=== PATIENT | male | born 1955 | race Caucasian/White ===

== ENCOUNTER 2016-11-30 07:32 | Emergency (ER) | payer OTHER ==
[~2016-11-30] VITALS: Ht 172.7 cm; Wt 99.6 kg
[~2016-11-30 07:32] MED LIST: ATEN-100 PO; ATOR10TA PO; DIAZ5 PO; LITH450 PO; LURA40; OMEP20TA PO; PHEN12.5 PO; QUET300 PO; SYNT25TA PO
[2016-11-30 07:36] VITALS: BP 120/76; PULSE 73; RESP 16; TEMP 98.5; O2SAT 97
[2016-11-30] MEDS ORDERED: ATOR10TA15 PO (08:02)
[2016-11-30] MEDS ORDERED: CLON.5 PO (08:02)
[2016-11-30] MEDS ORDERED: LURA40 PO (08:02)
[2016-11-30] MEDS ORDERED: LITH450T PO (08:02)
[2016-11-30] MEDS ORDERED: LEVO25TA4 PO (08:02)
[2016-11-30] MEDS ORDERED: ATEN25TA PO (08:02)
[2016-11-30] MEDS ORDERED: VIAG100T PO (08:02)
[2016-11-30] MEDS ORDERED: DIAZ5TAB PO (08:02)
[2016-11-30] MEDS ORDERED: QUET1TAB11 PO (08:04)
[2016-11-30] MEDS ORDERED: SODIUM CHLOR 0.9% 1000 ML INJ 1,000 ML IV SCH (08:14)
[2016-11-30] MEDS ORDERED: SODIUM CHLORIDE 0.9% FLUSH 5 ML FLUSH IVF PRN (08:15)
[2016-11-30] MEDS ORDERED: MORPHINE SULFATE 4 MG/ML INJ IV PUSH ONE (08:15)
[2016-11-30] MEDS ORDERED: ONDANSETRON HCL 4 MG/2 ML VIAL IVP ONE (08:15)
--- NOTE | 2016-11-30 08:16 | PD ---
HPI Chief Complaint: GI Complaint Time Seen by Provider: 08:07 Travel History International Travel<30 days: No Contact w/Intl Traveler<30days: No Traveled to known affect area: No History of Present Illness HPI This is a 61-year-old male who presents to the emergency department with several weeks of intermittent abdominal cramping, moderate severity, feeling like someone is punching him in the stomach, keeping him up overnight for the last several nights. He reports he feels very nauseous but hasn't been able to vomit. He's been having bowel movements. His last bowel movement was 10:30 last evening. He says his bowel movements are loose and have a foul odor to them. He denies any fevers or chills. He does say the pain radiates to his back and is worse in the left upper quadrant. He has a history of a bowel obstruction in the past, pancreatitis and diverticulosis. He is not sure why he had the bowel obstruction as he's never had surgery on his abdomen. PFSH Past Medical History Hx Anticoagulant Therapy: No Arthritis: Yes (L HAND, NECK) Bipolar Disorder: Yes Anxiety: Yes Depression: Yes Heart Rhythm Problems: No Cancer: No Cardiovascular Problems: Yes (HTN) High Cholesterol: No Chest Pain: No Congestive Heart Failure: No Cerebrovascular Accident: No Diabetes: No Diminished Hearing: No Endocrine: Yes Gastrointestinal Disorders: Yes (DIVERTICULOSIS) Genitourinary: No Hypertension: Yes Immune Disorder: No Implanted Vascular Access Dvce: No Musculoskeletal: Yes Neurologic: Yes Psychiatric: Yes (SCHIZOPHRENIA , BIPOLAR) Reproductive: No Respiratory: No Pancreatitis: Yes Schizophrenia: Yes Thyroid Disease: Yes Ulcer: No Tetanus Vaccination: Unknown Influenza Vaccination: No Past Surgical History Abdominal Surgery: Yes (LEFT INGUINAL HERNIA REPAIR) Cardiac Surgery: No Endocrine Surgery: No Eye Surgery: Yes (CATARACTSX2) Genitourinary Surgery: No Gynecologic Surgery: No Neurologic Surgery: No Oral Surgery: No Thoracic Surgery: No Tonsillectomy: Yes Other Surgery: Yes (SKIN GRAFTS LEFT ARM AND BOTH UPPER LEGS DUE TO 3RD DEGREE COLUNGA) Social History Alcohol Use: Yes (1-2 BEERS per week) Tobacco Use: No (quit cigs 7 years ago now e-vapor ) Substance Use: No Allergies-Medications (Allergen,Severity, Reaction): Coded Allergies: Cogentin (Verified Allergy, Severe, 11/30/16) Haldol (Verified Allergy, Severe, HALLUCINATION, 11/30/16) Thorazine (Verified Allergy, Severe, RASH, 11/30/16) Mellaril (Verified Allergy, Intermediate, 11/30/16) Reported Meds & Prescriptions Reported Meds & Active Scripts Active Reported Quetiapine (Quetiapine Fumarate) 400 Mg Tab 450 Mg PO HS Viagra (Sildenafil Citrate) 100 Mg Tab 100 Mg PO DAILY PRN Latuda (Lurasidone) 40 Mg Tab 40 Mg PO DAILY [place] Carbonate ER ([place] Carbonate) 450 Mg Tab 450 Mg PO BID Levothyroxine (Levothyroxine Sodium) 25 Mcg Tab 25 Mcg PO DAILY Klonopin (Clonazepam) 0.5 Mg Tab 0.5 Mg PO BID PRN Diazepam 5 Mg Tab 5 Mg PO DAILY PRN Atorvastatin (Atorvastatin Calcium) 10 Mg Tab 5 Mg PO HS Atenolol 25 Mg Tab 25 Mg PO HS Review of Systems Except as stated in HPI: all other systems reviewed are Neg Physical Exam Narrative GENERAL:Well appearing, no acute distress SKIN: Warm and dry. HEAD: Atraumatic. Normocephalic. EYES: Pupils equal and round. No injection or drainage. ENT: Moist mucous membranes NECK: Trachea midline. CARDIOVASCULAR: Regular rate and rhythm. No murmur appreciated. RESPIRATORY: Clear to auscultation. Breath sounds equal bilaterally. GASTROINTESTINAL: Abdomen soft, bowel sounds in all 4 quadrants, mildly tender to palpation diffusely. MUSCULOSKELETAL: No obvious deformities. NEUROLOGICAL: Awake and alert. No obvious cranial nerve deficits. Moving all extremities. PSYCHIATRIC: Appropriate mood and affect; insight and judgment normal. Data Data Last Documented VS Vital Signs Date Time Temp Pulse Resp B/P Pulse Ox O2 Delivery O2 Flow Rate FiO2 11/30/16 09:27 75 16 140/65 97 Room Air 11/30/16 07:36 98.5 Orders Complete Blood Count With Diff (11/30/16 08:14) Comprehensive Metabolic Panel (11/30/16 08:14) Lipase (11/30/16 08:14) Urinalysis - C+S If Indicated (11/30/16 08:14) Ct Abd/Pel W Iv Contrast(Rout) (11/30/16 08:14) Iv Access Insert/Monitor (11/30/16 08:14) Ecg Monitoring (11/30/16 08:14) Oximetry (11/30/16 08:14) Morphine Inj (Morphine Inj) (11/30/16 08:15) Ondansetron Inj (Zofran Inj) (11/30/16 08:15) Sodium Chlor 0.9% 1000 Ml Inj (Ns 1000 M (11/30/16 08:14) Sodium Chloride 0.9% Flush (Ns Flush) (11/30/16 08:15) Iohexol 350 Inj (Omnipaque 350 Inj) (11/30/16 09:17) Labs Laboratory Tests Test 11/30/16 11/30/16 08:30 08:45 White Blood Count 7.4 TH/MM3 Red Blood Count 4.95 MIL/MM3 Hemoglobin 14.9 GM/DL Hematocrit 44.2 % Mean Corpuscular Volume 89.4 FL Mean Corpuscular Hemoglobin 30.2 PG Mean Corpuscular Hemoglobin 33.7 % Concent Red Cell Distribution Width 11.7 % Platelet Count 198 TH/MM3 Mean Platelet Volume 9.4 FL Neutrophils (%) (Auto) 54.3 % Lymphocytes (%) (Auto) 31.8 % Monocytes (%) (Auto) 10.0 % Eosinophils (%) (Auto) 3.0 % Basophils (%) (Auto) 0.9 % Neutrophils # (Auto) 4.0 TH/MM3 Lymphocytes # (Auto) 2.4 TH/MM3 Monocytes # (Auto) 0.7 TH/MM3 Eosinophils # (Auto) 0.2 TH/MM3 Basophils # (Auto) 0.1 TH/MM3 CBC Comment DIFF FINAL Differential Comment Sodium Level 144 MEQ/L Potassium Level 3.8 MEQ/L Chloride Level 109 MEQ/L Carbon Dioxide Level 25.2 MEQ/L Anion Gap 10 MEQ/L Blood Urea Nitrogen 11 MG/DL Creatinine 1.10 MG/DL Estimat Glomerular Filtration 68 ML/MIN Rate Random Glucose 102 MG/DL Calcium Level 8.2 MG/DL Total Bilirubin 0.4 MG/DL Aspartate Amino Transf 18 U/L (AST/SGOT) Alanine Aminotransferase 32 U/L (ALT/SGPT) Alkaline Phosphatase 76 U/L Total Protein 6.9 GM/DL Albumin 3.5 GM/DL Lipase 131 U/L Urine Collection Type CLEAN CATCH Urine Color YELLOW Urine Turbidity CLEAR Urine pH 6.0 Urine Specific [place] 1.009 Urine Protein NEG mg/dL Urine Glucose (UA) NEG mg/dL Urine Ketones NEG mg/dL Urine Occult Blood NEG Urine Nitrite NEG Urine Bilirubin NEG Urine Leukocyte Esterase NEG Urine Squamous Epithelial 0-5 /hpf Cells Urine Amorphous Sediment FEW Microscopic Urinalysis Comment CULT NOT INDICATED Urine Collection Time 0845 [facility] Medical Decision Making Medical Screen Exam Complete: Yes Emergency Medical Condition: Yes Interpretation(s) Afebrile, no tachycardia, normotensive No leukocytosis Monocytic shift Electrolytes are reassuring Lipase is normal Urinalysis: No infection Last 24 hours Impressions Abdomen/Pelvis CT 11/30/16 0814 Signed Impressions: Service Date/Time: Wednesday, November 30, 2016 09:10 - CONCLUSION: 1. Questionable circumferential bladder wall thickening. 2. No acute inflammatory process. Marques Fierro MD Differential Diagnosis Pancreatitis, bowel obstruction, diverticulitis, colitis, gastritis, peptic ulcer disease Narrative Course This is a 61-year-old male who presents with intermittent abdominal pain and nausea that been going on for several weeks. He has a history of bowel obstruction and pancreatitis. He was placed on a monitor and an IV was established. Labs are obtained which were all reassuring. CT abdomen and pelvis was negative for bowel obstruction and only notes some circumferential bladder thickening. I discussed this with the patient and advised to follow-up with urology as an outpatient. I don't think this is the source of his symptoms. I suspect he has gastritis or peptic ulcer disease. He will be discharged with an antacid and asked to follow-up with gastroenterology. Diagnosis Primary Impression: Abdominal pain in male Referrals: Rajinder Mcgee MD Patient Instructions: General Instructions Additional Instructions: If you develop severe or worsening abdominal pain, fever>100.4, persistent vomiting or inability to eat or drink return to the emergency department immediately. Follow up with your primary care physician in 1-2 days for a check-up. You have a thick bladder on CT scan which should be followed by urology without fail. Med/Other Pt SpecificInfo: Prescription(s) given Disposition: 01 DISCHARGE HOME Condition: Stable Dolly Rojas MD Nov 30, 2016 08:16
[2016-11-30 08:40] LABS: BASOPHIL # 0.1 TH/MM3 (0-0.2); BASOPHIL % 0.9 % (0.0-2.0); EOSINOPHIL # 0.2 TH/MM3 (0-0.4); HEMATOCRIT 44.2 % (39.0-51.0); HEMO FLAGS DIFF FINAL; LYMPH % 31.8 % (9.0-44.0); LYMPHOCYTE # 2.4 TH/MM3 (1.0-4.8); MEAN CELL VOLUME 89.4 FL (80.0-100.0); MEAN CORPUSCULAR HEMOGLOBIN 30.2 PG (27.0-34.0); MEAN CORPUSCULAR HGB CONC 33.7 % (32.0-36.0); NEUT % 54.3 % (16.0-70.0); PLATELET COUNT 198 TH/MM3 (150-450); RED BLOOD COUNT 4.95 MIL/MM3 (4.50-5.90); RED CELL DISTRIBUTION WIDTH 11.7 % (11.6-17.2); WHITE BLOOD COUNT 7.4 TH/MM3 (4.0-11.0)
[2016-11-30 08:47] VITALS: RESP 16; O2SAT 98
[2016-11-30 08:48] LABS: CHLORIDE 109 MEQ/L (98-107); POTASSIUM 3.8 MEQ/L (3.5-5.1); SODIUM (NA) 144 MEQ/L (136-145)
[2016-11-30 08:51] LABS: BLOOD, URINE NEG (NEG); GLUCOSE,URINE NEG (NEG); KETONE, URINE NEG (NEG); METHOD OF COLLECTION CLEAN CATCH; NITRITE,URINE NEG (NEG); URINE COLOR YELLOW (YELLW/STRAW)
[2016-11-30 08:52] LABS: ANION GAP 10 MEQ/L (5-15); BICARBONATE 25.2 MEQ/L (21.0-32.0); BLOOD UREA NITROGEN 11 MG/DL (7-18)
[2016-11-30 08:55] LABS: ALT (GPT) 32 U/L (12-78); AST (GOT) 18 U/L (15-37); GLOMERULAR FILTRATION RATE 68 ML/MIN (>89)
[2016-11-30 08:57] LABS: TOTAL BILIRUBIN ADULT 0.4 MG/DL (0.2-1.0)
[2016-11-30 08:58] LABS: ALKALINE PHOSPHATASE 76 U/L (45-117)
[2016-11-30 09:01] LABS: COMMENT (UR) CULT NOT INDICATED; CULTURE IF INDICATED CULT NOT INDICATED; SQUAMOUS EPITHELIAL CELL URINE 0-5 /hpf (0-5)
[2016-11-30] MEDS ORDERED: IOHEXOL 350 MG/ML 10 ML VIAL (for RAD DIAG) IV ONE (09:17)
[2016-11-30 09:27] VITALS: BP 140/65; PULSE 75; RESP 16; O2SAT 97
--- NOTE | 2016-11-30 09:51 | RADHPO ---
EXAM DATE/TIME: 11/30/2016 09:10 [facility] COMPARISON: CT ABDOMEN & PELVIS W CONTRAST, November 10, 2014, 2:23. INDICATIONS : Lower abdomen pain for three weeks. IV CONTRAST: 70 cc Omnipaque 350 (iohexol) IV ORAL CONTRAST: No oral contrast ingested. RADIATION DOSE: 17.54 CTDIvol (mGy) MEDICAL HISTORY : Diverticulosis. Hypertension. Pancreatitis. SURGICAL HISTORY : Inguinal hernia repair. ENCOUNTER: Initial ACUITY: 3 weeks PAIN SCALE: 5/10 LOCATION: Bilateral lower quadrant TECHNIQUE: Volumetric scanning of the abdomen and pelvis was performed. Using automated exposure control and ad justment of the mA and/or kV according to patient size, radiation dose was kept as low as reasonably achievable to obtain optimal diagnostic quality images. FINDINGS: LOWER LUNGS: The visualized lower lungs are clear. LIVER: Homogeneous density without lesion. There is no dilation of the biliary tree. No calcified gallston es. SPLEEN: Normal size without lesion. PANCREAS: Within normal limits. KIDNEYS: Normal in size and shape. There is no mass, stone or hydronephrosis. ADRENAL GLANDS: Within normal limits. VASCULAR: There is no aortic aneurysm. BOWEL/MESENTERY: The stomach, small bowel, and colon demonstrate no acute abnormality. There is no free intraperitone al air or fluid. ABDOMINAL WALL: Within normal limits. RETROPERITONEUM: There is no lymphadenopathy. BLADDER: Questionable wall thickening without mass. REPRODUCTIVE: Within normal limits. INGUINAL: There is no lymphadenopathy or hernia on the right. Fat containing left inguinal hernia.. MUSCULOSKELETAL: Within normal limits for patient age. CONCLUSION: 1. Questionable circumferential bladder wall thickening. 2. No acute inflammatory process. Marques Fierro MD on November 30, 2016 at 9:47 Board Certified Radiologist. This report was verified electronically.
[2016-11-30] MEDS ORDERED: RANI150T PO (10:00)
[2016-11-30 10:33] VITALS: BP 134/67
[2016-12-01] MEDS ORDERED: TRAM50TA PO (04:37)
== END 2016-11-30 10:34 | disposition home or self-care (01) ==
LOC: PHED 07:32
DX: R10.84 Generalized abdominal pain (principal); I10 Essential (primary) hypertension
CPT/HCPCS: 74177; 80053; 81001; 83690; 85025; 96361; 96374; 96375; 99284; J2270; J2405; J7030; Q9967

== ENCOUNTER 2016-12-01 03:16 | Emergency (ER) | payer OTHER, MEDICARE ==
[~2016-12-01] VITALS: Ht 172.7 cm; Wt 102.0 kg
[~2016-12-01 03:16] MED LIST changes: -ATEN-100 PO; +ATEN25TA PO; -ATOR10TA PO; +ATOR10TA15 PO; +CLON.5 PO; -DIAZ5 PO; +DIAZ5TAB PO; +LEVO25TA4 PO; -LITH450 PO; +LITH450T PO; -LURA40; +LURA40 PO; -OMEP20TA PO; -PHEN12.5 PO; +QUET1TAB11 PO; -QUET300 PO; +RANI150T PO; -SYNT25TA PO; +VIAG100T PO
[2016-12-01 03:21] VITALS: BP 138/76; PULSE 94; RESP 16; TEMP 99.2; O2SAT 95
[2016-12-01] MEDS ORDERED: TRAM50TA PO (04:37)
--- NOTE | 2016-12-01 04:37 | PD ---
HPI Chief Complaint: Complaint Time Seen by Provider: 03:57 Travel History International Travel<30 days: No Contact w/Intl Traveler<30days: No Traveled to known affect area: No History of Present Illness HPI The patient is a 61-year-old male that complains of dysuria for 4 weeks. He was seen here yesterday and a complete workup which included CBC, urine, complete metabolic profile was normal except for a creatinine 1.1 and GFR 68. He states he just needs something for the pain so he can get some sleep. He states later on today he will be seen at the [facility]. He does have a history of schizophrenia, depression, anxiety and bipolar disorder. He states he is worried about bladder cancer. PFSH Past Medical History Hx Anticoagulant Therapy: No Arthritis: Yes (L HAND, NECK) Bipolar Disorder: Yes Anxiety: Yes Depression: Yes Heart Rhythm Problems: No Cancer: No Cardiovascular Problems: Yes (HTN) High Cholesterol: No Chest Pain: No Congestive Heart Failure: No Cerebrovascular Accident: No Diabetes: No Diminished Hearing: No Endocrine: Yes Gastrointestinal Disorders: Yes (DIVERTICULOSIS) Genitourinary: No Hypertension: Yes Immune Disorder: No Implanted Vascular Access Dvce: No Musculoskeletal: Yes Neurologic: Yes Psychiatric: Yes (SCHIZOPHRENIA , BIPOLAR) Reproductive: No Respiratory: No Pancreatitis: Yes Schizophrenia: Yes Thyroid Disease: Yes Ulcer: No Tetanus Vaccination: < 5 Years Influenza Vaccination: No Past Surgical History Abdominal Surgery: Yes (LEFT INGUINAL HERNIA REPAIR) Cardiac Surgery: No Endocrine Surgery: No Eye Surgery: Yes (CATARACTSX2) Genitourinary Surgery: No Gynecologic Surgery: No Neurologic Surgery: No Oral Surgery: No Thoracic Surgery: No Tonsillectomy: Yes Other Surgery: Yes (SKIN GRAFTS LEFT ARM AND BOTH UPPER LEGS DUE TO 3RD DEGREE COLUNGA) Social History Alcohol Use: Yes (1-2 BEERS per week) Tobacco Use: No (quit cigs 7 years ago now e-vapor ) Substance Use: No Allergies-Medications (Allergen,Severity, Reaction): Coded Allergies: Cogentin (Verified Allergy, Severe, 12/01/16) Haldol (Verified Allergy, Severe, HALLUCINATION, 12/01/16) Thorazine (Verified Allergy, Severe, RASH, 12/01/16) Mellaril (Verified Allergy, Intermediate, 12/01/16) Reported Meds & Prescriptions Reported Meds & Active Scripts Active Ranitidine (Ranitidine HCl) 150 Mg Tab 150 Mg PO BID Reported Quetiapine (Quetiapine Fumarate) 400 Mg Tab 450 Mg PO HS Viagra (Sildenafil Citrate) 100 Mg Tab 100 Mg PO DAILY PRN Latuda (Lurasidone) 40 Mg Tab 40 Mg PO DAILY [place] Carbonate ER ([place] Carbonate) 450 Mg Tab 450 Mg PO BID Levothyroxine (Levothyroxine Sodium) 25 Mcg Tab 25 Mcg PO DAILY Klonopin (Clonazepam) 0.5 Mg Tab 0.5 Mg PO BID PRN Atorvastatin (Atorvastatin Calcium) 10 Mg Tab 5 Mg PO HS Atenolol 25 Mg Tab 25 Mg PO HS Review of Systems Except as stated in HPI: all other systems reviewed are Neg Physical Exam Narrative GENERAL: Well-nourished, well-developed patient in minimal apparent distress. His vital signs are normal. SKIN: Warm and dry. HEAD: Normocephalic. EYES: No scleral icterus. No injection or drainage. NECK: Supple, trachea midline. No JVD or lymphadenopathy. CARDIOVASCULAR: Regular rate and rhythm without murmurs, gallops, or rubs. RESPIRATORY: Breath sounds equal bilaterally. No accessory muscle use. GASTROINTESTINAL: Abdomen soft, non-tender, nondistended. No guarding or rebound is present. MUSCULOSKELETAL: No cyanosis, or edema. BACK: Nontender without obvious deformity. No CVA tenderness. Data Data Last Documented VS Vital Signs Date Time Temp Pulse Resp B/P Pulse Ox O2 Delivery O2 Flow Rate FiO2 12/01/16 03:21 99.2 94 16 138/76 95 MDM Medical Decision Making Medical Screen Exam Complete: Yes Emergency Medical Condition: Yes Medical Record Reviewed: Yes Differential Diagnosis Conversion reaction, schizophrenia, anxiety, urinary tract infection, interstitial cystitis Narrative Course The patient may have a conversion reaction. I told the patient that his urine was absolutely normal and there was nothing in his urine done yesterday that suggested any bladder cancer. Nevertheless, the patient is still worried. He does not appear to be delusional at this time. Diagnosis Primary Impression: Schizophrenia Additional Impression: History of dysuria Additional Instructions[facility], take Aleve to see if this helps the problems. Med/Other Pt SpecificInfo: Prescription(s) given Scripts Tramadol 50 Mg Tab50 Mg PO Q4H PRN (PAIN) #10 TAB Ref 0 Prov:Jos Ham MD 12/01/16 Disposition: 01 DISCHARGE HOME Condition: Stable Jos Ham MD Dec 01, 2016 04:37
== END 2016-12-01 04:47 | disposition home or self-care (01) ==
LOC: PHED 03:16
DX: F20.9 Schizophrenia, unspecified (principal); R30.0 Dysuria; I10 Essential (primary) hypertension; R52 Pain, unspecified
CPT/HCPCS: 99283

== ENCOUNTER 2017-01-25 03:21 | Emergency (ER) | payer OTHER, MEDICARE ==
[~2017-01-25] VITALS: Ht 172.7 cm; Wt 95.0 kg
[~2017-01-25 03:21] MED LIST changes: -DIAZ5TAB PO; +TRAM50TA PO
[2017-01-25 03:23] VITALS: BP 123/62; PULSE 86; RESP 16; TEMP 98; O2SAT 98
[2017-01-25] MEDS ORDERED: SODIUM CHLORIDE 0.9% FLUSH 10 ML FLUSH IV FLUSH PRN (03:45)
[2017-01-25] MEDS ORDERED: ONDANSETRON HCL 4 MG/2 ML VIAL IVP ONE (04:00)
[2017-01-25] MEDS ORDERED: ALUMINUM/MAGNESIUM/SIMETH 30 ML CUP PO ONE (04:00)
[2017-01-25] MEDS ORDERED: LIDOCAINE VISCOUS 2% SOLN 15 ML UDC PO ONE (04:00)
[2017-01-25] MEDS ORDERED: PANTOPRAZOLE SODIUM 40 MG VIAL IVP ONE (04:00)
--- NOTE | 2017-01-25 04:05 | PD ---
HPI Chief Complaint: GI Complaint Time Seen by Provider: 03:51 Travel History International Travel<30 days: No Contact w/Intl Traveler<30days: No Traveled to known affect area: No History of Present Illness HPI Patient is a 61-year-old male presents emergency department with complaint of abdominal pain. Patient states that he ate some coleslaw at a restaurant yesterday evening that didn't taste good. This morning at approximately 1 AM he woke up with complaint of epigastric abdominal pain, slightly burning in nature. He denies any history of peptic ulcer disease, but does have history of pancreatitis. He's had some nausea but no vomiting. No diarrhea, fevers or chills. PFSH Past Medical History Hx Anticoagulant Therapy: No Arthritis: Yes (L HAND, NECK) Bipolar Disorder: Yes Anxiety: Yes Depression: Yes Heart Rhythm Problems: No Cancer: No Cardiovascular Problems: Yes (HTN) High Cholesterol: No Chest Pain: No Congestive Heart Failure: No Cerebrovascular Accident: No Diabetes: No Diminished Hearing: No Endocrine: Yes Gastrointestinal Disorders: Yes (DIVERTICULOSIS) Genitourinary: No Hypertension: Yes Immune Disorder: No Implanted Vascular Access Dvce: No Musculoskeletal: Yes Neurologic: Yes Psychiatric: Yes (SCHIZOPHRENIA , BIPOLAR) Reproductive: No Respiratory: No Pancreatitis: Yes Schizophrenia: Yes Thyroid Disease: Yes Ulcer: No Past Surgical History Abdominal Surgery: Yes (LEFT INGUINAL HERNIA REPAIR) Cardiac Surgery: No Endocrine Surgery: No Eye Surgery: Yes (CATARACTSX2) Genitourinary Surgery: No Gynecologic Surgery: No Neurologic Surgery: No Oral Surgery: No Thoracic Surgery: No Tonsillectomy: Yes Other Surgery: Yes (SKIN GRAFTS LEFT ARM AND BOTH UPPER LEGS DUE TO 3RD DEGREE COLUNGA) Social History Alcohol Use: Yes (1-2 BEERS per week) Tobacco Use: No (quit cigs 7 years ago now e-vapor ) Substance Use: No Allergies-Medications (Allergen,Severity, Reaction): Coded Allergies: Cogentin (Verified Allergy, Severe, 01/25/17) Haldol (Verified Allergy, Severe, HALLUCINATION, 01/25/17) Thorazine (Verified Allergy, Severe, RASH, 01/25/17) Mellaril (Verified Allergy, Intermediate, 01/25/17) Reported Meds & Prescriptions Reported Meds & Active Scripts Active Reported Quetiapine (Quetiapine Fumarate) 400 Mg Tab 450 Mg PO HS Viagra (Sildenafil Citrate) 100 Mg Tab 100 Mg PO DAILY PRN Latuda (Lurasidone) 40 Mg Tab 40 Mg PO DAILY [place] Carbonate ER ([place] Carbonate) 450 Mg Tab 450 Mg PO BID Levothyroxine (Levothyroxine Sodium) 25 Mcg Tab 25 Mcg PO DAILY Klonopin (Clonazepam) 0.5 Mg Tab 0.5 Mg PO BID PRN Atorvastatin (Atorvastatin Calcium) 10 Mg Tab 5 Mg PO HS Atenolol 25 Mg Tab 25 Mg PO HS Review of Systems Except as stated in HPI: all other systems reviewed are Neg Physical Exam Narrative GENERAL: Well-appearing male in no acute distress SKIN: Focused skin assessment warm/dry. HEAD: Normocephalic. EYES: No scleral icterus. No injection or drainage. ENT: No nasal bleeding or discharge. Mucous membranes pink and moist. NECK: Supple CARDIOVASCULAR: Regular rate and rhythm. RESPIRATORY: No accessory muscle use. GASTROINTESTINAL: Abdomen soft, minimal epigastric tenderness to palpation without rebound or guarding, obese MUSCULOSKELETAL: Normal gait NEUROLOGICAL: Awake and alert. Normal speech. PSYCHIATRIC: Appropriate mood and affect; insight and judgment normal. Data Data Last Documented VS Vital Signs Date Time Temp Pulse Resp B/P Pulse Ox O2 Delivery O2 Flow Rate FiO2 01/25/17 03:23 98.0 86 16 123/62 98 Room Air Orders Complete Blood Count With Diff (01/25/17 03:31) Comprehensive Metabolic Panel (01/25/17 03:31) Lipase (01/25/17 03:31) Iv Access Insert/Monitor (01/25/17 03:31) Ecg Monitoring (01/25/17 03:31) Oximetry (01/25/17 03:31) Sodium Chloride 0.9% Flush (Ns Flush) (01/25/17 03:45) Ondansetron Inj (Zofran Inj) (01/25/17 04:00) Pantoprazole Inj (Protonix Inj) (01/25/17 04:00) Al-Mag Hy-Si 40-40-4 Mg/Ml Liq (Mag-Al P (01/25/17 04:00) Lidocaine 2% Viscous (Xylocaine 2% Visco (01/25/17 04:00) Labs Laboratory Tests Test 01/25/17 04:05 White Blood Count 7.5 TH/MM3 Red Blood Count 4.39 MIL/MM3 Hemoglobin 13.5 GM/DL Hematocrit 39.6 % Mean Corpuscular Volume 90.0 FL Mean Corpuscular Hemoglobin 30.7 PG Mean Corpuscular Hemoglobin 34.0 % Concent Red Cell Distribution Width 13.2 % Platelet Count 184 TH/MM3 Mean Platelet Volume 9.5 FL Neutrophils (%) (Auto) 61.5 % Lymphocytes (%) (Auto) 26.6 % Monocytes (%) (Auto) 8.4 % Eosinophils (%) (Auto) 3.0 % Basophils (%) (Auto) 0.5 % Neutrophils # (Auto) 4.6 TH/MM3 Lymphocytes # (Auto) 2.0 TH/MM3 Monocytes # (Auto) 0.6 TH/MM3 Eosinophils # (Auto) 0.2 TH/MM3 Basophils # (Auto) 0.0 TH/MM3 CBC Comment DIFF FINAL Differential Comment Sodium Level 142 MEQ/L Potassium Level 3.6 MEQ/L Chloride Level 108 MEQ/L Carbon Dioxide Level 25.8 MEQ/L Anion Gap 8 MEQ/L Blood Urea Nitrogen 8 MG/DL Creatinine 1.09 MG/DL Estimat Glomerular Filtration 69 ML/MIN Rate Random Glucose 146 MG/DL Calcium Level 8.2 MG/DL Total Bilirubin 0.4 MG/DL Aspartate Amino Transf 41 U/L (AST/SGOT) Alanine Aminotransferase 41 U/L (ALT/SGPT) Alkaline Phosphatase 62 U/L Total Protein 6.5 GM/DL Albumin 3.6 GM/DL Lipase 157 U/L [facility] Medical Decision Making Medical Screen Exam Complete: Yes Emergency Medical Condition: Yes Medical Record Reviewed: Yes Differential Diagnosis 61-year-old male here with complaint of epigastric abdominal discomfort after eating coleslaw that did not taste well yesterday. Differential includes gastritis, pancreatitis, peptic ulcer disease, hepatobiliary pathology. Abdominal examination is benign making peritoneal pathology unlikely. Narrative Course Patient placed on monitor, IV established and blood obtained. Given IV PPI, Zofran, GI cocktail. CBC, CMP, lipase unremarkable. Patient felt improved after the above therapy will be discharged home. Diagnosis Primary Impression: Gastritis Qualified Code: K29.00 - Acute gastritis without hemorrhage, unspecified gastritis type Referrals: Primary Care Physician as needed Patient Instructions: Gastritis (ED), General Instructions Additional Instructions: Nausea medications as needed. Drink small volume, frequent fluids. [place] diet. Advance diet as tolerated. Med/Other Pt SpecificInfo: Prescription(s) given Scripts Ondansetron Odt (Zofran Odt)8 Mg Tab8 Mg SL Q8H PRN (NAUSEA OR VOMITING) #10 TAB Ref 0 Prov:Lucy Moya MD 01/25/17 Disposition: 01 DISCHARGE HOME Condition: Stable Lucy Moya MD Jan 25, 2017 04:05
[2017-01-25 04:20] LABS: AUTOMATED NEUTROPHIL # 4.6 TH/MM3 (1.8-7.7); BASOPHIL % 0.5 % (0.0-2.0); EOSINOPHIL # 0.2 TH/MM3 (0-0.4); HEMATOCRIT 39.6 % (39.0-51.0); HEMO FLAGS DIFF FINAL; LYMPH % 26.6 % (9.0-44.0); MEAN CORPUSCULAR HEMOGLOBIN 30.7 PG (27.0-34.0); MONO % 8.4 % (0.0-8.0); NEUT % 61.5 % (16.0-70.0); PLATELET COUNT 184 TH/MM3 (150-450); RED BLOOD COUNT 4.39 MIL/MM3 (4.50-5.90); RED CELL DISTRIBUTION WIDTH 13.2 % (11.6-17.2); WHITE BLOOD COUNT 7.5 TH/MM3 (4.0-11.0)
[2017-01-25 04:53] LABS: ALKALINE PHOSPHATASE 62 U/L (45-117); ALT (GPT) 41 U/L (12-78); TOTAL BILIRUBIN ADULT 0.4 MG/DL (0.2-1.0)
[2017-01-25 05:12] LABS: ANION GAP 8 MEQ/L (5-15); AST (GOT) 41 U/L (15-37); BICARBONATE 25.8 MEQ/L (21.0-32.0); BLOOD UREA NITROGEN 8 MG/DL (7-18); CHLORIDE 108 MEQ/L (98-107); GLOMERULAR FILTRATION RATE 69 ML/MIN (>89); SODIUM (NA) 142 MEQ/L (136-145)
[2017-01-25 05:15] LABS: POTASSIUM 3.6 MEQ/L (3.5-5.1)
[2017-01-25] MEDS ORDERED: ZOFR8TAB4 SL (05:22)
[2017-01-25 05:27] VITALS: BP 128/62
== END 2017-01-25 05:41 | disposition home or self-care (01) ==
LOC: NEPE 03:21
DX: K29.00 Acute gastritis without bleeding (principal); I10 Essential (primary) hypertension; E07.9 Disorder of thyroid, unspecified; Z87.19 Personal history of other diseases of the digestive system; Z87.39 Personal history of other diseases of the musculoskeletal system and connective tissue; Z86.59 Personal history of other mental and behavioral disorders; Z86.79 Personal history of other diseases of the circulatory system; Z87.891 Personal history of nicotine dependence
CPT/HCPCS: 80053; 83690; 85025; 96374; 96375; 99284; C9113; J2405

== ENCOUNTER 2017-03-28 02:26 | Emergency (ER) | payer MEDICARE, OTHER ==
[~2017-03-28] VITALS: Ht 172.7 cm; Wt 95.0 kg
[~2017-03-28 02:26] MED LIST changes: -RANI150T PO; -TRAM50TA PO; +ZOFR8TAB4 SL
[2017-03-28 02:30] VITALS: BP 140/68; PULSE 93; RESP 18; TEMP 100.5; O2SAT 96
[2017-03-28 02:37] VITALS: TEMP 99.4
[2017-03-28] MEDS ORDERED: SODIUM CHLOR 0.9% 1000 ML INJ 1,000 ML IV SCH (03:01)
--- NOTE | 2017-03-28 03:08 | PD ---
HPI Chief Complaint: Abdominal Pain Time Seen by Provider: 02:54 Travel History International Travel<30 days: No Contact w/Intl Traveler<30days: No Traveled to known affect area: No History of Present Illness HPI 61-year-old male complains of abdominal pain with nausea. Patient states that the symptoms started tonight. States that he drank several beers tonight. Patient states that he started having epigastric abdominal pain since then. Patient stated the pain is sharp pain localized on epigastric area. Patient denies any pain radiation. Patient denies any fever chills. Patient denies any vomiting or diarrhea. Patient has history gastritis and appendicitis in the past. Patient also has history of bipolar disorder and on Seroquel. PFSH Past Medical History Hx Anticoagulant Therapy: No Arthritis: Yes (L HAND, NECK) Bipolar Disorder: Yes Anxiety: Yes Depression: Yes Heart Rhythm Problems: No Cancer: No Cardiovascular Problems: Yes (HTN) High Cholesterol: No Chest Pain: No Congestive Heart Failure: No Cerebrovascular Accident: No Diabetes: No Diminished Hearing: No Endocrine: Yes Gastrointestinal Disorders: Yes (DIVERTICULOSIS) Genitourinary: No Hypertension: Yes Immune Disorder: No Implanted Vascular Access Dvce: No Musculoskeletal: Yes Neurologic: Yes Psychiatric: Yes (SCHIZOPHRENIA , BIPOLAR) Reproductive: No Respiratory: No Pancreatitis: Yes Schizophrenia: Yes Thyroid Disease: Yes Ulcer: No Tetanus Vaccination: < 5 Years Influenza Vaccination: No Past Surgical History Abdominal Surgery: Yes (LEFT INGUINAL HERNIA REPAIR) Cardiac Surgery: No Endocrine Surgery: No Eye Surgery: Yes (CATARACTSX2) Genitourinary Surgery: No Gynecologic Surgery: No Neurologic Surgery: No Oral Surgery: No Thoracic Surgery: No Tonsillectomy: Yes Other Surgery: Yes (SKIN GRAFTS LEFT ARM AND BOTH UPPER LEGS DUE TO 3RD DEGREE COLUNGA) Social History Alcohol Use: Yes (1-2 BEERS per week) Tobacco Use: No (quit cigs 7 years ago now e-vapor ) Substance Use: No Allergies-Medications (Allergen,Severity, Reaction): Coded Allergies: Cogentin (Verified Allergy, Severe, 03/28/17) Haldol (Verified Allergy, Severe, HALLUCINATION, 03/28/17) Thorazine (Verified Allergy, Severe, RASH, 03/28/17) Mellaril (Verified Allergy, Intermediate, 03/28/17) Reported Meds & Prescriptions Reported Meds & Active Scripts Active Zofran Odt (Ondansetron Odt) 8 Mg Tab 8 Mg SL Q8H PRN Reported Quetiapine (Quetiapine Fumarate) 400 Mg Tab 450 Mg PO HS Viagra (Sildenafil Citrate) 100 Mg Tab 100 Mg PO DAILY PRN Latuda (Lurasidone) 40 Mg Tab 40 Mg PO DAILY [place] Carbonate ER ([place] Carbonate) 450 Mg Tab 450 Mg PO BID Levothyroxine (Levothyroxine Sodium) 25 Mcg Tab 25 Mcg PO DAILY Klonopin (Clonazepam) 0.5 Mg Tab 0.5 Mg PO BID PRN Atorvastatin (Atorvastatin Calcium) 10 Mg Tab 5 Mg PO HS Atenolol 25 Mg Tab 25 Mg PO HS Review of Systems General / Constitutional: No: Fever Eyes: No: Visual changes HENT: No: Headaches Cardiovascular: No: Chest Pain or Discomfort Respiratory: No: Shortness of Breath Gastrointestinal: Positive: Nausea, Abdominal Pain Genitourinary: No: Dysuria Musculoskeletal: No: Pain Skin: No Rash Neurologic: No: Weakness Psychiatric: No: Depression Endocrine: No: Polydipsia Hematologic/Lymphatic: No: Easy Bruising Physical Exam Narrative GENERAL: Well-nourished, well-developed patient. SKIN: Focused skin assessment warm/dry. HEAD: Normocephalic. EYES: No scleral icterus. No injection or drainage. NECK: Supple, trachea midline. No JVD or lymphadenopathy. CARDIOVASCULAR: Regular rate and rhythm without murmurs, gallops, or rubs. RESPIRATORY: Breath sounds equal bilaterally. No accessory muscle use. GASTROINTESTINAL: Abdomen soft, nondistended. Patient has moderate tenderness on palpation epigastric area. No rebound tenderness. No mass. MUSCULOSKELETAL: No cyanosis, or edema. BACK: Nontender without obvious deformity. No CVA tenderness. Neurologic exam normal. Data Data Last Documented VS Vital Signs Date Time Temp Pulse Resp B/P Pulse Ox O2 Delivery O2 Flow Rate FiO2 03/28/17 02:37 99.4 03/28/17 02:33 18 03/28/17 02:30 93 140/68 96 Orders Complete Blood Count With Diff (03/28/17 03:01) Comprehensive Metabolic Panel (03/28/17 03:01) Lipase (03/28/17 03:01) Prothrombin Time / Inr (Pt) (03/28/17 03:01) Act Partial Throm Time (Ptt) (03/28/17 03:01) Urinalysis - C+S If Indicated (03/28/17 03:01) Iv Access Insert/Monitor (03/28/17 03:01) Ecg Monitoring (03/28/17 03:01) Oximetry (03/28/17 03:01) Ondansetron Inj (Zofran Inj) (03/28/17 03:15) Pantoprazole Inj (Protonix Inj) (03/28/17 03:15) Sodium Chlor 0.9% 1000 Ml Inj (Ns 1000 M (03/28/17 03:01) Labs Laboratory Tests Test 03/28/17 03/28/17 03:14 03:22 White Blood Count 8.3 TH/MM3 Red Blood Count 4.81 MIL/MM3 Hemoglobin 14.8 GM/DL Hematocrit 43.3 % Mean Corpuscular Volume 90.0 FL Mean Corpuscular Hemoglobin 30.8 PG Mean Corpuscular Hemoglobin 34.2 % Concent Red Cell Distribution Width 13.1 % Platelet Count 213 TH/MM3 Mean Platelet Volume 10.7 FL Neutrophils (%) (Auto) 64.6 % Lymphocytes (%) (Auto) 23.2 % Monocytes (%) (Auto) 8.7 % Eosinophils (%) (Auto) 2.8 % Basophils (%) (Auto) 0.7 % Neutrophils # (Auto) 5.3 TH/MM3 Lymphocytes # (Auto) 1.9 TH/MM3 Monocytes # (Auto) 0.7 TH/MM3 Eosinophils # (Auto) 0.2 TH/MM3 Basophils # (Auto) 0.1 TH/MM3 CBC Comment DIFF FINAL Differential Comment Prothrombin Time 10.7 SEC Prothromb Time International 1.0 RATIO Ratio Activated Partial 25.3 SEC Thromboplast Time Sodium Level 140 MEQ/L Potassium Level 3.8 MEQ/L Chloride Level 104 MEQ/L Carbon Dioxide Level 29.9 MEQ/L Anion Gap 6 MEQ/L Blood Urea Nitrogen 11 MG/DL Creatinine 1.24 MG/DL Estimat Glomerular Filtration 59 ML/MIN Rate Random Glucose 135 MG/DL Calcium Level 8.1 MG/DL Total Bilirubin 0.6 MG/DL Aspartate Amino Transf 33 U/L (AST/SGOT) Alanine Aminotransferase 40 U/L (ALT/SGPT) Alkaline Phosphatase 83 U/L Total Protein 7.0 GM/DL Albumin 3.8 GM/DL Lipase 170 U/L Urine Color LIGHT-YELLOW Urine Turbidity CLEAR Urine pH 5.5 Urine Specific [place] 1.003 Urine Protein NEG mg/dL Urine Glucose (UA) NEG mg/dL Urine Ketones NEG mg/dL Urine Occult Blood NEG Urine Nitrite NEG Urine Bilirubin NEG Urine Urobilinogen LESS THAN 2.0 MG/DL Urine Leukocyte Esterase NEG Urine WBC LESS THAN 1 /hpf Microscopic Urinalysis Comment CULT NOT INDICATED MDM Medical Decision Making Medical Screen Exam Complete: Yes Emergency Medical Condition: Yes Interpretation(s) 4:02 AM. CBC within normal limit. CMP within normal limit. Lipase normal. UA is negative. Differential Diagnosis Differential diagnosis including gastritis, PUD, pancreatitis, cholecystitis, colitis, UTI, pyelonephritis, nephrolithiasis. Narrative Course 61-year-old male with epigastric abdominal pain. History of gastritis, pancreatitis, alcohol abuse. Normal saline solution 1 25 cc an hour. Protonix 40 mg IV. Zofran 4 mg IV. Diagnosis Primary Impression: Gastritis Qualified Code: K29.70 - Gastritis without bleeding, unspecified chronicity, unspecified gastritis type Patient Instructions: General Instructions Additional Instructions: Take medication as directed. Advised patient to avoid alcohol. Advised [facility]. Follow-up with personal physician. Return if persistent problem or worse. Med/Other Pt SpecificInfo: Prescription(s) given Scripts Dicyclomine (Bentyl)10 Mg Cap10 Mg PO TID PRN (PAIN SCALE 1 TO 10) #21 CAP Ref 0 Prov:Prabhjot Coughlin MD 03/28/17 Sucralfate (Carafate)1 Gm Tab1 Gm PO QID #120 TAB Ref 0 On empty stomach Prov:Prabhjot Coughlin MD 03/28/17 Pantoprazole (Protonix)20 Mg Tab20 Mg PO DAILY #30 TAB Prov:Prabhjot Coughlin MD 03/28/17 Disposition: 01 DISCHARGE HOME Condition: Stable Prabhjot Coughlin MD Mar 28, 2017 03:08
[2017-03-28] MEDS ORDERED: ONDANSETRON HCL 4 MG/2 ML VIAL IVP ONE (03:15)
[2017-03-28] MEDS ORDERED: PANTOPRAZOLE SODIUM 40 MG VIAL IVP ONE (03:15)
[2017-03-28 03:25] LABS: AUTOMATED NEUTROPHIL # 5.3 TH/MM3 (1.8-7.7); BASOPHIL # 0.1 TH/MM3 (0-0.2); BASOPHIL % 0.7 % (0.0-2.0); EOSINOPHIL # 0.2 TH/MM3 (0-0.4); EOSINOPHIL % 2.8 % (0.0-4.0); HEMATOCRIT 43.3 % (39.0-51.0); HEMO FLAGS DIFF FINAL; LYMPH % 23.2 % (9.0-44.0); LYMPHOCYTE # 1.9 TH/MM3 (1.0-4.8); MEAN CORPUSCULAR HEMOGLOBIN 30.8 PG (27.0-34.0); MEAN CORPUSCULAR HGB CONC 34.2 % (32.0-36.0); MONO % 8.7 % (0.0-8.0); NEUT % 64.6 % (16.0-70.0); PLATELET COUNT 213 TH/MM3 (150-450); RED BLOOD COUNT 4.81 MIL/MM3 (4.50-5.90); RED CELL DISTRIBUTION WIDTH 13.1 % (11.6-17.2); WHITE BLOOD COUNT 8.3 TH/MM3 (4.0-11.0)
[2017-03-28 03:38] LABS: BLOOD, URINE NEG (NEG); GLUCOSE,URINE NEG (NEG); KETONE, URINE NEG (NEG); NITRITE,URINE NEG (NEG); PH, URINE 5.5 (5.0-8.5); URINE COLOR LIGHT-YELLOW (YELLW/STRAW)
[2017-03-28 03:38] LABS: APTT (PATIENT) 25.3 SEC (24.3-30.1); PROTHROMBIN TIME - PATIENT 10.7 SEC (9.8-11.6)
[2017-03-28 03:39] LABS: COMMENT (UR) CULT NOT INDICATED; CULTURE IF INDICATED CULT NOT INDICATED
[2017-03-28 03:47] LABS: ALKALINE PHOSPHATASE 83 U/L (45-117); TOTAL BILIRUBIN ADULT 0.6 MG/DL (0.2-1.0)
[2017-03-28 03:58] LABS: ALT (GPT) 40 U/L (12-78); ANION GAP 6 MEQ/L (5-15); AST (GOT) 33 U/L (15-37); BICARBONATE 29.9 MEQ/L (21.0-32.0); BLOOD UREA NITROGEN 11 MG/DL (7-18); CHLORIDE 104 MEQ/L (98-107); GLOMERULAR FILTRATION RATE 59 ML/MIN (>89); SODIUM (NA) 140 MEQ/L (136-145)
[2017-03-28 04:00] LABS: POTASSIUM 3.8 MEQ/L (3.5-5.1)
[2017-03-28] MEDS ORDERED: CARA1TAB6 PO (04:05)
[2017-03-28] MEDS ORDERED: PANT20 PO (04:05)
[2017-03-28] MEDS ORDERED: DICY10 PO (04:05)
== END 2017-03-28 04:58 | disposition home or self-care (01) ==
LOC: NEPE 02:26
DX: K29.70 Gastritis, unspecified, without bleeding (principal); I10 Essential (primary) hypertension
CPT/HCPCS: 80053; 81001; 83690; 85025; 85610; 85730; 96361; 96374; 96375; 99284; C9113; J2405; J7030

== ENCOUNTER 2017-04-19 23:39 | Emergency (ER) | payer OTHER ==
[~2017-04-19] VITALS: Ht 172.7 cm; Wt 98.0 kg
[~2017-04-19 23:39] MED LIST changes: +CARA1TAB6 PO; +DICY10 PO; +PANT20 PO
[2017-04-19 23:42] VITALS: BP 155/79; PULSE 91; RESP 16; TEMP 98.3; O2SAT 97
[2017-04-20] MEDS ORDERED: methylPREDNISolone SOD SUCC 125 MG/2 ML VIAL IM ONE (02:00)
[2017-04-20] MEDS ORDERED: CEPH-460 PO (02:23)
[2017-04-20] MEDS ORDERED: MEDR4PAK PO (02:24)
--- NOTE | 2017-04-20 02:24 | PD ---
HPI Chief Complaint: Skin Problem Time Seen by Provider: 01:55 Travel History International Travel<30 days: No Contact w/Intl Traveler<30days: No Traveled to known affect area: No History of Present Illness HPI Patient is a 61-year-old male presented to emergency reevaluation of skin lesions. Patient states his removed what he thinks could be a stinger or thorns from his right inner forearm at 9:00 last night. Patient states his muscle feels tight. He denies any numbness, weakness, fevers, chills, redness, swelling. Patient presented with a baggy with 2 small less than 2 mm thorny objects in it. PFSH Past Medical History Hx Anticoagulant Therapy: No Arthritis: Yes (L HAND, NECK) Bipolar Disorder: Yes Anxiety: Yes Depression: Yes Heart Rhythm Problems: No Cancer: No High Cholesterol: No Chest Pain: No Congestive Heart Failure: No Cerebrovascular Accident: No Diabetes: No Diminished Hearing: No Endocrine: Yes Gastrointestinal Disorders: Yes (DIVERTICULOSIS) Genitourinary: No Hypertension: Yes Immune Disorder: No Implanted Vascular Access Dvce: No Musculoskeletal: Yes Psychiatric: Yes (SCHIZOPHRENIA , BIPOLAR) Reproductive: No Respiratory: No Pancreatitis: Yes Schizophrenia: Yes Thyroid Disease: Yes Ulcer: No Tetanus Vaccination: Unknown Influenza Vaccination: No Past Surgical History Abdominal Surgery: Yes (LEFT INGUINAL HERNIA REPAIR) Cardiac Surgery: No Endocrine Surgery: No Eye Surgery: Yes (CATARACTSX2) Genitourinary Surgery: No Gynecologic Surgery: No Neurologic Surgery: No Oral Surgery: No Thoracic Surgery: No Tonsillectomy: Yes Other Surgery: Yes (SKIN GRAFTS LEFT ARM AND BOTH UPPER LEGS DUE TO 3RD DEGREE COLUNGA) Social History Alcohol Use: Yes (1-2 BEERS every other night) Tobacco Use: No (quit cigs 7 years ago now e-vapor ) Substance Use: No Allergies-Medications (Allergen,Severity, Reaction): Coded Allergies: Cogentin (Verified Allergy, Severe, 04/20/17) Haldol (Verified Allergy, Severe, HALLUCINATION, 04/20/17) Thorazine (Verified Allergy, Severe, RASH, 04/20/17) Mellaril (Verified Allergy, Intermediate, 04/20/17) Reported Meds & Prescriptions Reported Meds & Active Scripts Active Bentyl (Dicyclomine HCl) 10 Mg Cap 10 Mg PO TID PRN Carafate (Sucralfate) 1 Gm Tab 1 Gm PO QID On empty stomach Protonix (Pantoprazole Sodium) 20 Mg Tab 20 Mg PO DAILY Zofran Odt (Ondansetron Odt) 8 Mg Tab 8 Mg SL Q8H PRN Reported Quetiapine (Quetiapine Fumarate) 400 Mg Tab 450 Mg PO HS Viagra (Sildenafil Citrate) 100 Mg Tab 100 Mg PO DAILY PRN Latuda (Lurasidone) 40 Mg Tab 40 Mg PO DAILY [place] Carbonate ER ([place] Carbonate) 450 Mg Tab 450 Mg PO BID Levothyroxine (Levothyroxine Sodium) 25 Mcg Tab 25 Mcg PO DAILY Klonopin (Clonazepam) 0.5 Mg Tab 0.5 Mg PO BID PRN Atorvastatin (Atorvastatin Calcium) 10 Mg Tab 5 Mg PO HS Atenolol 25 Mg Tab 25 Mg PO HS Review of Systems Except as stated in HPI: all other systems reviewed are Neg Skin: Positive Lesions Physical Exam Narrative GENERAL: Well-nourished, well-developed patient. SKIN: Focused skin assessment warm/dry. There are 4 less than 1-2 mm macular lesions to right inner forearm just distal to the elbow, no induration, erythema noted. No swelling noted in the left forearm, positive radial pulse, brisk with 3 second capillary refill. HEAD: Normocephalic. EYES: No scleral icterus. No injection or drainage. NECK: Supple, trachea midline. No JVD or lymphadenopathy. CARDIOVASCULAR: Regular rate and rhythm without murmurs, gallops, or rubs. RESPIRATORY: Breath sounds equal bilaterally. No accessory muscle use. GASTROINTESTINAL: Abdomen soft, non-tender, nondistended. MUSCULOSKELETAL: No cyanosis, or edema. BACK: Nontender without obvious deformity. No CVA tenderness. Data Data Last Documented VS Vital Signs Date Time Temp Pulse Resp B/P Pulse Ox O2 Delivery O2 Flow Rate FiO2 04/19/17 23:42 98.3 91 16 155/79 97 Room Air Orders Methylprednisolone So Succ Inj (Solumedr (04/20/17 02:00) MDM Medical Decision Making Medical Screen Exam Complete: Yes Emergency Medical Condition: Yes Interpretation(s) Vital Signs Date Time Temp Pulse Resp B/P Pulse Ox O2 Delivery O2 Flow Rate FiO2 04/19/17 23:42 98.3 91 16 155/79 97 Room Air Differential Diagnosis Retained foreign body versus insect sting versus thorn versus allergic reaction versus cellulitis versus other Narrative Course Patient is a 61-year-old male presenting to emergency department for evaluation of possible bite or sting to his inner forearm. Patient is neurovascularly intact, there are no signs or symptoms of cellulitis present. Patient be given dose of Solu-Medrol now. Reassured patient that there were no acute findings other than where the actual levin are. He was encouraged to follow-up with primary doctor. Patient will be given a prescription for an antibiotic however he was encouraged to continue watchful waiting. He was advised that the Solu- Medrol would help her with a histamine response. He was encouraged to return to emergency department for any new or worsening symptoms. He verbalized understanding of these instructions. Patient stable for discharge. Diagnosis Primary Impression: Skin foreign body Referrals: Primary Care Physician 1 day Patient Instructions: General Instructions Additional Instructions: Follow-up with your primary doctor You may take [id number] Benadryl as needed and as directed for itching If you begin antibiotics complete full course as prescribed Return to emergency department for any new or worsening symptoms Med/Other Pt SpecificInfo: Prescription(s) given Scripts Methylprednisolone Dosepak (Medrol Dosepak)4 Mg Dspk4 Mg PO DIRECTED #1 DSPK Ref 0 Per Pharmacist direction Prov:Vilma Montenegro 04/20/17 Cephalexin (Keflex)500 Mg [id number] Mg PO Q12H 7 Days Ref 0 Prov:Vilma Montenegro 04/20/17 Disposition: 01 DISCHARGE HOME Condition: Stable Vilma Montenegro Apr 20, 2017 02:24
== END 2017-04-20 03:04 | disposition home or self-care (01) ==
LOC: NEPD 23:39
DX: S50.851A Superficial foreign body of right forearm, initial encounter (principal); I10 Essential (primary) hypertension; E07.9 Disorder of thyroid, unspecified; Z87.39 Personal history of other diseases of the musculoskeletal system and connective tissue; Z86.59 Personal history of other mental and behavioral disorders; Z87.19 Personal history of other diseases of the digestive system; W45.8XXA Other foreign body or object entering through skin, initial encounter
CPT/HCPCS: 96372; 99284; J2930